=== PATIENT | female | born 1985 | race African-American/Black ===

== ENCOUNTER 2016-10-25 11:16 | Emergency (ER) | payer SELFPAY ==
[~2016-10-25] VITALS: Ht 170.2 cm; Wt 76.0 kg
[2016-10-25 11:29] VITALS: BP 138/79; PULSE 65; RESP 16; TEMP 98.5; O2SAT 98
[2016-10-25] MEDS ORDERED: DEXAMETHASONE SOD PHOS 4 MG/ML VIAL IM ONE (11:45)
[2016-10-25] MEDS ORDERED: diphenhydrAMINE HCL 50 MG CAP PO ONE (11:45)
[2016-10-25] MEDS ORDERED: PRED20 PO (11:50)
[2016-10-25] MEDS ORDERED: CETI-1 PO (11:50)
[2016-10-25] MEDS ORDERED: ZANT300T PO (11:50)
--- NOTE | 2016-10-25 11:50 | PD ---
HPI Chief Complaint: Allergic/Adverse Reaction Time Seen by Provider: 11:38 Travel History International Travel<30 days: No Contact w/Intl Traveler<30days: No Traveled to known affect area: No History of Present Illness HPI 30-year-old female complains of itching rash of the face, chest, upper extremity. Patient states that he exposed to chemical at work. Patient states that the rash started a week ago and get worse since then. Patient denies any shortness of breath. PFSH Past Medical History Medical History: Denies Significant Hx Diminished Hearing: No Influenza Vaccination: No ?: Not Past Surgical History Surgical History: No Previous Surgery Social History Alcohol Use: No Tobacco Use: Yes Allergies-Medications (Allergen,Severity, Reaction): Coded Allergies: No Known Allergies (Unverified , 10/25/16) Reported Meds & Prescriptions Reported Meds & Active Scripts Active No Active Prescriptions or Reported Medications Review of Systems General / Constitutional: No: Fever Eyes: No: Visual changes HENT: No: Headaches Cardiovascular: No: Chest Pain or Discomfort Respiratory: No: Shortness of Breath Gastrointestinal: No: Abdominal Pain Genitourinary: No: Dysuria Musculoskeletal: No: Pain Skin: Positive Rash, Positive Itching Neurologic: No: Weakness Psychiatric: No: Depression Endocrine: No: Polydipsia Hematologic/Lymphatic: No: Easy Bruising Physical Exam Narrative GENERAL: Well-nourished, well-developed patient. SKIN: Focused skin assessment warm/dry. HEAD: Normocephalic. EYES: No scleral icterus. No injection or drainage. NECK: Supple, trachea midline. No JVD or lymphadenopathy. CARDIOVASCULAR: Regular rate and rhythm without murmurs, gallops, or rubs. RESPIRATORY: Breath sounds equal bilaterally. No accessory muscle use. GASTROINTESTINAL: Abdomen soft, non-tender, nondistended. MUSCULOSKELETAL: No cyanosis, or edema. BACK: Nontender without obvious deformity. No CVA tenderness. Patient has patchy rash on the face upper chest and both arms. Data Data Last Documented VS Vital Signs Date Time Temp Pulse Resp B/P Pulse Ox O2 Delivery O2 Flow Rate FiO2 10/25/16 11:29 98.5 65 16 138/79 98 MDM Medical Decision Making Medical Screen Exam Complete: Yes Emergency Medical Condition: Yes Differential Diagnosis Differential diagnoses including contact dermatitis, allergic reaction. Narrative Course 30-year-old female with itching rash on the face of arm and chest. Patient was exposed to chemical at work. Decadron 8 mg IM. Benadryl 50 mg by mouth. Diagnosis Primary Impression: Allergic dermatitis Patient Instructions: General Instructions Additional Instructions: Avoid chemical exposure. Take medications as directed. Follow-up with personal physician. Return if worse. Med/Other Pt SpecificInfo: Prescription(s) given Scripts Ranitidine (Zantac)300 Mg Oys955 Mg PO DAILY #10 TAB Ref 0 Prov:Richar Fish MD 10/25/16 Cetirizine HCl (Zyrtec)10 Mg Tablet1 Tab PO DAILY #10 Prov:Richar Fish MD 10/25/16 Prednisone 20 Mg Tab20 Mg PO BID #14 TAB Prov:Richar Fish MD 10/25/16 Disposition: 01 DISCHARGE HOME Condition: Stable Richar Fish MD Oct 25, 2016 11:50
== END 2016-10-25 12:27 | disposition home or self-care (01) ==
LOC: PHEFT 11:16
DX: L23.5 Allergic contact dermatitis due to other chemical products (principal); Z72.0 Tobacco use; X58.XXXA Exposure to other specified factors, initial encounter; Y99.0 Civilian activity done for income or pay
CPT/HCPCS: 96372; 99284; J1100; Q0163

== ENCOUNTER 2016-11-30 13:49 | Emergency (ER) | payer SELFPAY ==
[~2016-11-30] VITALS: Ht 170.2 cm; Wt 74.0 kg
[~2016-11-30 13:49] MED LIST: CETI-1 PO; PRED20 PO; ZANT300T PO
[2016-11-30 13:53] VITALS: BP 127/76; PULSE 90; RESP 16; TEMP 98.9; O2SAT 100
--- NOTE | 2016-11-30 14:12 | PD ---
HPI Chief Complaint: GI Complaint Time Seen by Provider: 13:58 Travel History International Travel<30 days: No Contact w/Intl Traveler<30days: No Traveled to known affect area: No History of Present Illness HPI 31-year-old female arrives with urinary frequency and three episodes diarrhea today, nonbloody. Last oral intake was a hamburger. No fever or abdominal pain. Nausea without vomiting is reported. No abnormal vaginal discharge or bleeding. PFSH Past Medical History Diminished Hearing: No Tetanus Vaccination: < 5 Years Influenza Vaccination: No ?: Not LMP: 10/30/2016 Social History Alcohol Use: No Tobacco Use: Yes Allergies-Medications (Allergen,Severity, Reaction): Coded Allergies: No Known Allergies (Unverified , 11/30/16) Reported Meds & Prescriptions Reported Meds & Active Scripts Active Zofran Odt (Ondansetron Odt) 4 Mg Tab 4 Mg SL Q8HR PRN Review of Systems Except as stated in HPI: all other systems reviewed are Neg General / Constitutional: No: Fever Physical Exam Narrative GENERAL: 31-year-old female no acute distress SKIN: Warm and dry. HEAD: Atraumatic. Normocephalic. EYES: Pupils equal and round. No scleral icterus. No injection or drainage. ENT: No nasal bleeding or discharge. Mucous membranes pink and moist. NECK: Trachea midline. No JVD. CARDIOVASCULAR: Regular rate and rhythm. RESPIRATORY: No accessory muscle use. Clear to auscultation. Breath sounds equal bilaterally. GASTROINTESTINAL: Abdomen soft, non-tender, nondistended. Hepatic and splenic margins not palpable. MUSCULOSKELETAL: Extremities without clubbing, cyanosis, or edema. No obvious deformities. NEUROLOGICAL: Awake and alert. No obvious cranial nerve deficits. Motor grossly within normal limits. Five out of 5 muscle strength in the arms and legs. Normal speech. PSYCHIATRIC: Appropriate mood and affect; insight and judgment normal. Data Data Last Documented VS Vital Signs Date Time Temp Pulse Resp B/P (MAP) Pulse Ox O2 Delivery O2 Flow Rate FiO2 11/30/16 15:07 75 16 122/68 (86) 98 11/30/16 13:53 98.9 Vital signs reviewed Orders Orders Urinalysis - C+S If Indicated (11/30/16 14:03) Ondansetron Odt (Zofran Odt) (11/30/16 14:15) Labs Laboratory Tests Test 11/30/16 14:00 Urine Collection Type CLEAN CATCH Urine Color YELLOW Urine Turbidity CLEAR Urine pH 6.0 Urine Specific [place] 1.021 Urine Protein NEG mg/dL Urine Glucose (UA) NEG mg/dL Urine Ketones NEG mg/dL Urine Occult Blood MOD Urine Nitrite NEG Urine Bilirubin NEG Urine Leukocyte Esterase NEG Urine RBC 15-19 /hpf Urine WBC 0-2 /hpf Urine Squamous Epithelial Cells > 8 /hpf Urine Bacteria FEW /hpf Microscopic Urinalysis Comment CULT NOT INDICATED Urine Collection Time 14:00 [facility] Medical Decision Making Medical Screen Exam Complete: Yes Emergency Medical Condition: Yes Medical Record Reviewed: Yes Differential Diagnosis Constipation, Gastritis, Acute Cholecystitis, Biliary Colic, Pancreatitis, BEST , Hepatitis, Bowel Obstruction, Cystitis, Mesenteric Ischemia, AAA, Appendicitis , Renal Stone/Hydronephrosis, GERD, perforated viscous Narrative Course UA: No UTI Zofran ODT here with good effect. Zofran script. Return precautions discussed. Diagnosis Primary Impression: Diarrhea Qualified Codes: A09 - Infectious gastroenteritis and colitis, unspecified Referrals: Primary Care Physician 3 days Additional Instructions: PLEASE TAKE ZOFRAN PRESCRIBED. PLEASE RETURN TO ER IF YOU START VOMITING, DEVELOP FEVER AND/OR IF YOUR ABDOMINAL PAIN WORSENS ESPECIALLY OVER NEXT 8 HOURS. Med/Other Pt SpecificInfo: Prescription(s) given Scripts Ondansetron Odt (Zofran Odt) 4 Mg Tab 4 MG SL Q8HR Y for Nausea/Vomiting, #10 TAB 0 Refills Prov: Nacho Segovia MD 11/30/16 Disposition: 01 DISCHARGE HOME Condition: Stable Nacho Segovia MD Nov 30, 2016 14:12
[2016-11-30] MEDS ORDERED: ONDANSETRON ODT 4 MG TAB PO ONE (14:15)
[2016-11-30 14:37] LABS: BLOOD, URINE MOD (NEG); GLUCOSE,URINE NEG (NEG); KETONE, URINE NEG (NEG); NITRITE,URINE NEG (NEG)
[2016-11-30 14:38] LABS: METHOD OF COLLECTION CLEAN CATCH; URINE COLOR YELLOW (YELLW/STRAW)
[2016-11-30 14:39] LABS: BACTERIA, URINE FEW /hpf; COMMENT (UR) CULT NOT INDICATED; CULTURE IF INDICATED CULT NOT INDICATED; RBC, URINE 15-19 /hpf (0-3); SQUAMOUS EPITHELIAL CELL URINE > 8 /hpf (0-5); WBC, URINE 0-2 /hpf (0-5)
[2016-11-30] MEDS ORDERED: ZOFR4TAB3 SL (14:46)
[2016-11-30 15:07] VITALS: BP 122/68
== END 2016-11-30 15:15 | disposition home or self-care (01) ==
LOC: PHED 13:49
DX: A09 Infectious gastroenteritis and colitis, unspecified (principal); Z72.0 Tobacco use
CPT/HCPCS: 81001; 99283

== ENCOUNTER 2017-02-23 11:35 | Emergency (ER) | payer SELFPAY ==
[~2017-02-23] VITALS: Ht 170.2 cm; Wt 75.0 kg
[~2017-02-23 11:35] MED LIST changes: -CETI-1 PO; -PRED20 PO; -ZANT300T PO; +ZOFR4TAB3 SL
[2017-02-23 11:55] VITALS: BP 133/83; PULSE 93; RESP 18; TEMP 98.1; O2SAT 99
[2017-02-23] MEDS ORDERED: CEPH-460 PO (12:20)
--- NOTE | 2017-02-23 12:25 | PD ---
HPI Chief Complaint: Laceration/Skin Injury Time Seen by Provider: 12:05 Travel History International Travel<30 days: No Contact w/Intl Traveler<30days: No Traveled to known affect area: No History of Present Illness HPI Patient comes emergency Department for evaluation of laceration to the right forearm that occurred yesterday morning while doing work in the yard. Patient reports cleaning the wound. Denies doing anything else for it. Reports tetanus shot is up-to-date. Denies any pain. Denies anything making symptoms better or worse. Patient reports she cut her forearm on a plastic ornament. PFSH Past Medical History Medical History: Denies Significant Hx Diminished Hearing: No Tetanus Vaccination: < 5 Years Influenza Vaccination: No ?: Not LMP: last week Past Surgical History Surgical History: No Previous Surgery Social History Alcohol Use: No Tobacco Use: Yes Substance Use: No Allergies-Medications (Allergen,Severity, Reaction): Coded Allergies: No Known Allergies (Verified Adverse Reaction, Unknown, 02/23/17) Reported Meds & Prescriptions Reported Meds & Active Scripts Active Keflex (Cephalexin) 500 Mg Cap 500 Mg PO Q8H Review of Systems General / Constitutional: No: Fever Eyes: No: Visual changes HENT: No: Headaches Cardiovascular: No: Chest Pain or Discomfort Respiratory: No: Shortness of Breath Gastrointestinal: No: Abdominal Pain Genitourinary: No: Dysuria Musculoskeletal: No: Pain Skin: No Rash Neurologic: No: Weakness Psychiatric: No: Depression Endocrine: No: Polydipsia Hematologic/Lymphatic: No: Easy Bruising Physical Exam Narrative GENERAL: Well-developed, well nourished, in no acute distress, and non-ill appearing. SKIN: Patient with an opened laceration noted on the right forearm has approximately 2 cm long and gaping approximately 1 cm. There is no foreign body noted. Neurovascularly intact distally. There is no active bleeding. HEAD: Atraumatic. Normocephalic. EYES: Pupils equal and round. EOMI. No scleral icterus. No injection or drainage. ENT: No nasal bleeding or discharge. Mucous membranes pink and moist. NECK: Trachea midline. Supple. No nuclear rigidity. RESPIRATORY: No accessory muscle use. No respiratory distress. MUSCULOSKELETAL: No obvious deformities. No clubbing. No cyanosis. No edema. Full range of motion. NEUROLOGICAL: Awake and alert. No obvious cranial nerve deficits. Motor grossly within normal limits. Normal speech. PSYCHIATRIC: Appropriate mood and affect; insight and judgment normal. Data Data Last Documented VS Vital Signs Date Time Temp Pulse Resp B/P (MAP) Pulse Ox O2 Delivery O2 Flow Rate FiO2 02/23/17 11:55 98.1 93 18 133/83 (100) 99 Orders Orders Ed Discharge Order (02/23/17 12:20) Wound Care (02/23/17 12:20) MDM Medical Decision Making Medical Screen Exam Complete: Yes Emergency Medical Condition: Yes Differential Diagnosis Laceration, abrasion, skin tear Narrative Course The patients laceration however is to old to close primarily. It was discussed with the patient that primary closure at this time would probably result in infection. The risk of infection is to great when the wound can be revised at another time for cosmesis. There was no sign of infection at this time. The patient was instructed to follow up with plastics after healing by secondary intent and at that time may have scar revision. Plan of care was agreed upon. There was no evidence to suggest foreign bodies. Visual and tactile exams were unremarkable. There was no evidence of neurovascular injury as well. The patients wounds were cleaned and dressed. The patient was given signs and symptom warnings for infection, such as increasing pain, redness, swelling, associated heat, pus or fever. The patient was given instructions for timely follow up. The patient agreed with plan of care. Patient in no obvious distress upon re-evaluation. Patient was asked if they wanted to speak to my attending, which the patient did not wish to do at this time. Any questions/concerns in reference to patient diagnosis/condition discussed and clarified prior to patient's discharge. Reinforced sheer importance of close follow up with patient's primary physician or primary care clinic. Instructed patient to return to ED immediately, if symptoms return/ worsen. Patient showed understanding of above instructions. Further instructions and recommendations were detailed in discharge paperwork. Patient ambulated without difficulty out of ED at discharge. Diagnosis Primary Impression: Laceration of forearm, right Qualified Codes: S51.811A - Laceration without foreign body of right forearm, initial encounter Referrals: [facility] Patient Instructions: General Instructions, Laceration Without Closure (ED) Departure Forms: Work Release Enter return to work date: Feb 23, 2017 Additional Instructions: Follow-up with your primary care physician next week for reevaluation. Take all medication as prescribed. Keep wound dry and clean as possible using soap and water. Use Neosporin to promote healing. Do not soak or submerge wound. Return to the emergency department if symptoms get worse. Med/Other Pt SpecificInfo: Prescription(s) given Scripts Cephalexin (Keflex) 500 Mg Cap 500 MG PO Q8H for Infection, #30 CAP 0 Refills Prov: Richar Fish MD 02/23/17 Disposition: 01 DISCHARGE HOME Condition: Stable Alan Espinoza Feb 23, 2017 12:25
== END 2017-02-23 13:03 | disposition home or self-care (01) ==
LOC: PHEFT 11:35
DX: S51.811A Laceration without foreign body of right forearm, initial encounter (principal); W26.8XXA Contact with other sharp object(s), not elsewhere classified, initial encounter; Y93.H9 Activity, other involving exterior property and land maintenance, building and construction
CPT/HCPCS: 99283

== ENCOUNTER 2017-03-15 08:54 | Emergency (ER) | payer SELFPAY ==
[~2017-03-15] VITALS: Ht 170.2 cm; Wt 77.0 kg
[~2017-03-15 08:54] MED LIST changes: +CEPH-460 PO; -ZOFR4TAB3 SL
[2017-03-15 08:59] VITALS: BP 122/78; PULSE 92; RESP 16; TEMP 98.4; O2SAT 100
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
== END 2017-03-15 09:36 | disposition home or self-care (01) ==
LOC: PHEFT 08:54
DX: S01.81XA Laceration without foreign body of other part of head, initial encounter (principal); Z72.0 Tobacco use; W22.8XXA Striking against or struck by other objects, initial encounter
CPT/HCPCS: 12011